=== PATIENT | male | born 1940 | race Caucasian/White ===

== ENCOUNTER → 2016-06-06 | Outpatient (CLI) | payer MEDICARE, OTHER ==
[2015-10-25 10:49] VITALS: BP 139/73
[~2016-06-06] MED LIST: AMLO10TA2 PO; ASPI81TA2 PO; CLOP75TA PO; COLE1TAB PO; DICY10CA53 PO; DRON400T PO; LACT1CAP PO; LACT1CAP6 PO; LOPE2CAP PO; METO100T2 PO; MULT-18 PO; Mesalamine PO; OMEP40CA5 PO; ONDA4TAB7 PO; PANCREALIPASE PO; RIVA10TA PO; RIVAROXABAN
--- NOTE | 2016-06-06 08:38 | KCIC ---
PROCEDURE Two-view orbit radiographs 06/06/2016 HISTORY History of metal exposure to the left thigh 50 years ago which reportedly was removed. FINDINGS Verduzco digital radiographs of the orbits with the patient looking up and down were performed. No radiopaque foreign body is seen involving either orbit. The paranasal sinuses are clear. No fracture is noted. IMPRESSION No radiopaque foreign body is seen involving either orbit. Electronically signed by: Mack Nayak MD (Jun 06, 2016 08:36:24)
--- NOTE | 2016-06-06 16:48 | KCIC ---
PROCEDURE MRI abdomenwithout contrast and MRCP. HISTORY Cholangiocarcinoma. Status post stent placement. History of acute renal failure. TECHNIQUE T1 and T2 weighted MRI sequences of the abdomen was performed in the axial and coronal planes. In phase and out of phase MRI sequences were performed. Using a single shot heavily T2-weighted fast spin-echo and MIP algorithm, 3-D reconstructed MRCP was generated. . COMPARISON No previous imaging study at this facility is available for comparison. FINDINGS MRI ABDOMEN: The liver is homogeneous in appearance. The spleen is homogeneous in appearance. The spleen is not enlarged. The pancreas is homogeneous in appearance. No focal pancreatic enlargement is seen. The gallbladder is surgically absent. No adrenal mass is evident. Bilateral renal nodules are seen most likely representing cysts. Previous outside CT report June 06, 2016 commented on bilateral renal cysts. No focal aneurysmal dilatation of the abdominal aorta is seen. No enlarged abdominal lymphadenopathy is seen. No ascites is seen. MRCP: By history, a biliary stent has been placed. There are multiple round low signal areas within the extrahepatic biliary tree which may represent air bubbles given the patient's history. A stone cannot be excluded. There is narrowing of the common hepatic duct consistent with patient's history of cholangiocarcinoma. This measures 2 centimeters in length. There is Mater proximal intrahepatic biliary ductal dilatation. No most dilated left lobe bile duct measures up to 8 millimeters. The common bile duct measures 7 millimeters caliber. There is mild dilatation of the main pancreatic duct measuring up to 4 millimeters but the main pancreatic duct is smooth. IMPRESSION 1. Bilateral renal cysts. Otherwise, unremarkablenon-contrastMRI study of the abdomen. 2. 2 centimeter in length segmental narrowing of the common hepatic duct consistent with patient's history of cholangiocarcinoma. There is moderate proximal intrahepatic biliary ductal dilatation. By history, a biliary stent is in place. Multiple round low signal areas are seen which may represent air bubbles. Common bile duct stones cannot be excluded. Electronically signed by: Fito Burt MD (Jun 06, 2016 16:46:53)
== END | disposition home or self-care (01) ==
LOC: KCIC MRI 08:07
PROVIDERS: ATTEND Internal Medicine
DX: C24.9 Malignant neoplasm of biliary tract, unspecified (principal); N28.1 Cyst of kidney, acquired
CPT/HCPCS: 70030; 74181